=== PATIENT | female | born 1955 | race Hispanic/Latino ===

== ENCOUNTER 2023-05-29 06:04 | Day surgery (SDC) | payer MEDICARE ==
[2023-05-25 10:16] VITALS: BP 175/82; PULSE 72; RESP 16
[2023-05-25 10:20] LABS: BASOPHILS % (AUTO) 0.5 % (0.0-5.0); EOSINOPHILS % (AUTO) 4.5 % (0.0-8.0); LYMPHOCYTES % (AUTO) 34.7 % (21.0-51.0); MEAN CORPUSCULAR HEMOGLOBIN 28.9 pg (27.0-33.0); MEAN CORPUSCULAR HGB CONC 32.8 g/dL (32.0-36.0); MEAN CORPUSCULAR VOLUME 88.3 fL (79-99); MONOCYTES % (AUTO) 11.2 % (3.0-13.0); NEUTROPHILS % (AUTO) 48.8 % (40.0-77.0); PLATELET COUNT (AUTO) 316 K/uL (130-400); RED BLOOD CELL COUNT(AUTO) 4.53 MIL/uL (4.00-5.50); RED CELL DISTRIBUTION WIDTH 12.5 % (11.0-15.5); WHITE BLOOD COUNT (AUTO) 8.6 K/uL (4.8-10.8)
[2023-05-25 10:34] LABS: CREATININE 0.8 mg/dL (0.5-1.5); POTASSIUM 4.1 mmol/L (3.5-5.1)
[~2023-05-29] VITALS: Ht 152.4 cm; Wt 53.3 kg
[2023-05-29] VITALS (17 sets, daily range): BP systolic 118–142; BP diastolic 56–80; PULSE 59–90; RESP 11–17
[~2023-05-29 06:04] MED LIST: CETI-89 PO; FLUT15.845 NS; LEVO112C4 PO; LIOT5TAB11 PO; MONT-39 PO; OMEG-11 PO; PROG200C11 PO; SPIR50TA5 PO; [UNRECOGNIZED DRUG - OTHER] PO; advair IH; albuterol IH; allegra PO; mvi PO; probiotic PO; vitamin d PO
[2023-05-29] MEDS ORDERED: CEFAZOLIN SODIUM 1 GM VIAL ONE (06:28)
[2023-05-29] MEDS ORDERED: LACTATED RINGERS 1000ML 1,000 ML IV ONE (06:28)
[2023-05-29] MEDS ORDERED: CALDOLOR 800MG+NS 250ML 250 ML IV ONE (06:43)
[2023-05-29] MEDS ORDERED: MIDAZOLAM HCL 1 MG/ML 2ML VIAL ONE (07:04)
[2023-05-29] MEDS ORDERED: ONDANSETRON 4MG INJ ONE (07:05)
[2023-05-29] MEDS ORDERED: ROCURONIUM 10MG/1ML SYR 10 MG/ML ML ONE (07:05)
[2023-05-29] MEDS ORDERED: FENTANYL CITRATE PF 50 MCG/1 ML 2ML VIAL ONE (07:05)
[2023-05-29] MEDS ORDERED: PROPOFOL 10 MG/ML 20ML VIAL IV ONE (07:05)
[2023-05-29] MEDS ORDERED: GLYCOPYRROLATE 1 MG/5 ML SYRINGE ONE (07:47)
[2023-05-29] MEDS ORDERED: NEOSTIGMINE 5MG/5ML SYR IV ONE (07:47)
== END 2023-05-29 09:40 | disposition home or self-care (01) ==
LOC: DAH 06:04
PROVIDERS: ATTEND Obstetrics & Gynecology
DX: N95.0 Postmenopausal bleeding (principal); Z20.822 Contact with and (suspected) exposure to COVID-19; N84.1 Polyp of cervix uteri; N85.8 Other specified noninflammatory disorders of uterus; J45.909 Unspecified asthma, uncomplicated; I10 Essential (primary) hypertension; E11.9 Type 2 diabetes mellitus without complications; E03.9 Hypothyroidism, unspecified; Z98.890 Other specified postprocedural states; Z90.5 Acquired absence of kidney; Z82.49 Family history of ischemic heart disease and other diseases of the circulatory system; Z83.3 Family history of diabetes mellitus
CPT/HCPCS: 80048; 85025; 86850 ×2; 86900 ×2; 86901 ×2; 87426; 36415 ×2; 93005; 58563; 57500; A6260; A4663; J7120 ×2; A4351 ×2; A4355; J3010; J0690; J3490; J2710; J2250; J2704; J2405; J1741; A4930; A4215; A4223; A4222; J7030; A4221